=== PATIENT | female | born 1960 | race Caucasian/White ===

== ENCOUNTER 2018-02-19 14:13 | Emergency (ER) | payer SELFPAY ==
[2018-02-19] MEDS ORDERED: Ondansetron PF 4 MG/2 ML Vial ONE (15:15)
[2018-02-19] MEDS ORDERED: Morphine 2 MG/ML SYRINGE ONE ×2 (15:15→16:41)
[2018-02-19 15:19] LABS: #Basophils 0.1 thou/uL (0.0-0.2); #Eosinphils 0.3 thou/uL (0.0-0.7); #Lymphocytes 3.2 thou/uL (1.20-3.40); #Monocytes 0.6 thou/uL (0.11-0.59); #Neutrophils 4.4 thou/uL (1.40-6.50); %Basophils 1.1 % (0.0-1.0); %Eosinophils 3.5 % (0.0-10.0); %Lymphocytes 36.9 % (21.0-51.0); %Monocytes 7.4 % (0.0-10.0); %Neutrophils 51.1 % (42.0-75.0); Hemoglobin 9.9 g/dL (12.0-16.0); Mean Corpuscular HGB CONC 32.2 g/dL (32.0-36.0); Mean Corpuscular Hemoglobin 24.9 pg (27.0-31.0); Mean Corpuscular Volume 77.4 fL (78.0-98.0); Mean Platelet Volume 9.3 fL (7.4-10.4); Platelet Count 314 thou/uL (130-400); RBC Distribution Width 16.5 % (11.5-14.5); Red Blood Cell (RBC) Count 3.98 mill/uL (4.20-5.40); White Blood Cell (WBC) Count 8.6 thou/uL (4.8-10.8)
[2018-02-19 15:27] LABS: Bilirubin Negative (Negative); Blood, Urine Negative (Negative); Clarity CLEAR (Clear); Glucose, Urine (Dipstick) Negative (Negative); Leukocyte Small (Negative); Nitrite Negative (Negative); Protein, Urine (Dipstick) Negative (Neg-Trace); Specific Gravity, Urine 1.005 (1.002-1.036); Urobilinogen 0.2 mg/dL (0.2-1.0); pH, Urine 6.5 (5.0-9.0)
[2018-02-19 15:29] LABS: Bacteria/HPF None Seen HPF (None Seen); Hyaline Casts/LPF 0-3 HYALINE CAST LPF (0-3 Hyaline); Pathc Cast-AUWi Flag 0.14 (0-2.49); RBC/HPF 0-3 HPF (0-3); Squamous Epithelial 0-3 HPF (0-3); WBC/HPF 0-3 HPF (0-3)
[2018-02-19 16:18] LABS: ALT (SGPT) 22 U/L (8-55); AST (SGOT) 37 U/L (5-34); Albumin 3.6 g/dL (3.5-5.0); Alkaline Phosphatase 159 U/L (40-150); Anion Gap 13 mmol/L (10-20); BUN (Urea Nitrogen) 4 mg/dL (9.8-20.1); Bilirubin, Total 0.2 mg/dL (0.2-1.2); Calc. Creatinine Clearance 0 mL/min (70-130); Calcium 8.6 mg/dL (7.8-10.44); Carbon Dioxide 23 mmol/L (22-29); Chloride 106 mmol/L (98-107); Estimated GFR-MDRD 70; Globulin 3.1 g/dL (2.4-3.5); Glucose 87 mg/dL (70-105); Lipase 34 U/L (8-78); Potassium 4.2 mmol/L (3.5-5.1); Protein, Total 6.7 g/dL (6.0-8.3); Sodium 138 mmol/L (136-145)
[2018-02-19] MEDS ORDERED: Iopamidol 370 76% 100 ML VIAL ONE (16:25)
--- NOTE | 2018-02-19 16:25 | CT ---
CT OF THE ABDOMEN AND PELVIS WITH CONTRAST 02/19/18 COMPARISON: None. HISTORY: Exacerbation of chronic right sided abdominal pain for one week. Chronic diarrhea with nausea and vom iting. TECHNIQUE: Multiple contiguous axial images were obtained in a CT of the abdomen and pelvis with contrast. Coron al reformats were performed. FINDINGS: Diffuse fatty infiltration of the liver is seen. The patient is status post cholecystectomy and hyste rectomy. The kidneys, adrenal glands, spleen, and pancreas are unremarkable. Postsurgical changes are seen in the stomach. The large and small bowel are unremarkable. The appendi x is not definitely seen and may have been removed. No abdominal or pelvic lymphadenopathy are seen. Degenerative changes and postsurgical changes are seen in the spine. The visualized inferior thorax and abdominal wall soft tissues are unremarkable. IMPRESSION: 1. No evidence of acute intra-abdominal/pelvic abnormality. 2. Fatty liver. POS: [facility]
[2018-02-19] MEDS ORDERED: Ketorolac Tromethamine 30 MG/ML VIAL ONE (16:41)
== END 2018-02-19 17:18 | disposition home or self-care (01) ==
LOC: ERS 14:13
DX: R10.11 Right upper quadrant pain (principal); R10.31 Right lower quadrant pain; S50.12XA Contusion of left forearm, initial encounter; S50.11XA Contusion of right forearm, initial encounter; R11.2 Nausea with vomiting, unspecified; I10 Essential (primary) hypertension; K21.9 Gastro-esophageal reflux disease without esophagitis; D64.9 Anemia, unspecified; M06.9 Rheumatoid arthritis, unspecified; F41.9 Anxiety disorder, unspecified; F32.9 Major depressive disorder, single episode, unspecified; R23.8 Other skin changes; Z86.72 Personal history of thrombophlebitis; Z79.899 Other long term (current) drug therapy; X58.XXXA Exposure to other specified factors, initial encounter
CPT/HCPCS: 74177; 80053; 81003; 81015; 83690; 85025; 96361; 96374; 96375; 96376; J1885; J2270; J2405

== ENCOUNTER 2018-02-21 21:51 | Observation (INO) | payer SELFPAY ==
[2018-02-21 22:47] LABS: #Eosinphils 0.3 thou/uL (0.0-0.7); #Monocytes 0.8 thou/uL (0.11-0.59); #Neutrophils 5.2 thou/uL (1.40-6.50); %Basophils 0.5 % (0.0-1.0); %Eosinophils 3.3 % (0.0-10.0); %Lymphocytes 32.3 % (21.0-51.0); %Monocytes 8.9 % (0.0-10.0); Hemoglobin 9.9 g/dL (12.0-16.0); Mean Corpuscular HGB CONC 31.6 g/dL (32.0-36.0); Mean Corpuscular Hemoglobin 24.3 pg (27.0-31.0); Mean Corpuscular Volume 77.1 fL (78.0-98.0); Mean Platelet Volume 8.6 fL (7.4-10.4); Platelet Count 308 thou/uL (130-400); RBC Distribution Width 16.3 % (11.5-14.5); Red Blood Cell (RBC) Count 4.05 mill/uL (4.20-5.40); White Blood Cell (WBC) Count 9.4 thou/uL (4.8-10.8)
[2018-02-21] MEDS ORDERED: Morphine 4 MG/ML VIAL ONE ×2 (22:52→23:38)
[2018-02-21] MEDS ORDERED: Ondansetron PF 4 MG/2 ML Vial ONE (22:53)
[2018-02-21 23:09] LABS: ALT (SGPT) 25 U/L (8-55); AST (SGOT) 35 U/L (5-34); Albumin 3.5 g/dL (3.5-5.0); Alkaline Phosphatase 140 U/L (40-150); Anion Gap 11 mmol/L (10-20); BUN (Urea Nitrogen) 4 mg/dL (9.8-20.1); Bilirubin, Total Less than 0.2 mg/dL (0.2-1.2); Calc. Creatinine Clearance 0 mL/min (70-130); Calcium 8.8 mg/dL (7.8-10.44); Carbon Dioxide 24 mmol/L (22-29); Chloride 107 mmol/L (98-107); Estimated GFR-MDRD 66; Globulin 3.3 g/dL (2.4-3.5); Glucose 93 mg/dL (70-105); Lipase 38 U/L (8-78); Potassium 3.8 mmol/L (3.5-5.1); Protein, Total 6.8 g/dL (6.0-8.3); Sodium 138 mmol/L (136-145)
[2018-02-21 23:13] LABS: Bilirubin Negative (Negative); Blood, Urine Negative (Negative); Clarity CLEAR (Clear); Glucose, Urine (Dipstick) Negative (Negative); Leukocyte Moderate (Negative); Nitrite Negative (Negative); Protein, Urine (Dipstick) Negative (Neg-Trace); Specific Gravity, Urine 1.004 (1.002-1.036); Urobilinogen 0.2 mg/dL (0.2-1.0); pH, Urine 6.5 (5.0-9.0)
[2018-02-21 23:14] LABS: Bacteria/HPF None Seen HPF (None Seen); Hyaline Casts/LPF 0-3 HYALINE CAST LPF (0-3 Hyaline); Pathc Cast-AUWi Flag 0.29 (0-2.49); RBC/HPF 0-3 HPF (0-3); Squamous Epithelial 0-3 HPF (0-3)
[2018-02-22] MEDS ORDERED: Ondansetron ODT 4 MG TAB SL PRN (01:38)
[2018-02-22] MEDS ORDERED: Acetaminophen 325 MG TAB PO PRN (01:38)
[2018-02-22] MEDS ORDERED: Sodium Chloride 0.9% 1,000 ML IV SCH (01:38)
[2018-02-22] MEDS ORDERED: Ondansetron PF 4 MG/2 ML Vial IVP PRN (01:38)
[2018-02-22] MEDS ORDERED: hydrALAZINE 20 MG/ML VIAL SLOW IVP PRN (02:00)
[2018-02-22 02:29] VITALS: BMI 29.9
[2018-02-22] MEDS: Morphine 4 MG/ML VIAL IV PRN ×2 (02:49→09:34)
[2018-02-22] MEDS ORDERED: Ibuprofen 800 MG TAB PO PRN (04:17)
[2018-02-22] MEDS ORDERED: Bisacodyl 5 MG TAB PO PRN (04:17)
[2018-02-22] MEDS ORDERED: Senokot S 8.6-50 MG TAB PO PRN (04:17)
[2018-02-22] MEDS ORDERED: Zolpidem Tartrate 5 MG TAB PO PRN (04:17)
[2018-02-22] MEDS: Sodium Chloride 0.9% 1,000 ML IV SCH ×2 (04:48→11:57)
[2018-02-22] MEDS: methylPREDNISolone Sod Succ/PF 125 MG/2 ML VIAL IVP SCH (05:34)
[2018-02-22] MEDS: traMADol HCl 50 MG TAB PO PRN (06:42)
--- NOTE | 2018-02-22 07:53 | HP ---
CHIEF COMPLAINT: Abdominal pain. HISTORY OF PRESENT ILLNESS: HPI obtained from patient and medical records. This is a 57-year-old female with past medical history of rheumatoid arthritis, spinal stenosis, degenerative disk disease, autoimmune disease of IBS, IBD, GERD, anemia, vitamin B and vitamin D deficiency, and diverticulitis, presenting with diffuse abdominal pain, mostly located at the left lower quadrant. Per the patient, she has had history of abdominal pain for a long time, and the patient lived in [place], which is located around [place]. The patient states that, that is where her medical doctors are and she currently moved to [place]. The patient was recently in our hospital for similar abdominal pain, which the patient was seen, examined, and discharged from the ED. Now, the patient is coming back with similar abdominal pain, which is 7/10 and the patient stated that she is also having some diarrhea, loss of appetite, nausea, and vomiting. The patient states that she has history of irritable bowel syndrome, diarrhea type. In addition, the patient is also stating that she has history of inflammatory bowel disease with associated rash on her lower extremities, which has been there for approximately about a year. Upon further investigation and going through the patient's chart, we saw the patient back in April,. The patient had increased esophageal reflux; therefore, the patient saw a advertising sales representative, and an endoscopy was done. After endoscopy, it was found that the patient had 3 and 8 mm polyps in the fundus. Anastomosis in the fundus with gastric bypass type changes. Biopsy that was done on the polyps revealed reactive gastropathy without intestinal metaplasia was identified. Small bowel biopsy showed unremarkable duodenal mucosa with no evidence of celiac sprue. Cardiac workup that was done throughout those years was negative, and the patient had a colonoscopy done. Per records, the patient's colonoscopy revealed internal hemorrhoids. Also, the patient stated that she had some polyps as well. The patient also stated that she was found to have diverticulitis, which she was treated for. Upon further investigation, the patient's colonoscopy in the past showed that the patient was diagnosed with Crohn disease. REVIEW OF SYSTEMS: Positive for abdominal pain, decrease in appetite, diarrhea, nausea, vomiting, bilateral lower extremity rashes, otherwise as documented in the HPI, all other systems were reviewed and are negative. MEDICAL HISTORY: Significant for rheumatoid arthritis; spinal stenosis; degenerative disk disease; irritable bowel syndrome, diarrhea type; "inflammatory bowel disease;" Crohn disease; GERD; anemia; vitamin B and vitamin D deficiency; diverticulosis; diverticulitis; and history of DVTs. FAMILY HISTORY: The patient's mother had colon cancer. Mother also had lung disease. Father from brain tumor and mother from COPD. SURGICAL HISTORY: Cholecystectomy; appendectomy; tonsillectomy; hysterectomy; back surgery x2; right ulnar shortening, requiring surgery; abdominal adhesions removal; gastric bypass; and left rotator cuff repair. PSYCHIATRIC HISTORY: Depression and anxiety. SOCIAL HISTORY: The patient denies alcohol use, denies illicit drug use, and denies smoking history. ALLERGIES: ESTEFANI INHIBITORS, LATEX, PENICILLIN, AND SULFA. CURRENT MEDICATIONS: The patient takes, 1. Amitriptyline 50 mg. 2. Zoloft 100 mg. 3. Tramadol 50 mg. 4. Cyclobenzaprine 10 mg. 5. Zantac 300 mg. 6. Soma 250 mg. PHYSICAL EXAMINATION: VITAL SIGNS: The patient's blood pressure is 154/133, pulse of 93, respiratory rate of 18, temperature of 98.1, and oxygen saturation of 96% on room air. GENERAL: The patient is awake, alert, oriented x3, not in acute distress. The patient is very pleasant. HEENT: Normocephalic, atraumatic. Pupils are equally round and reactive to light. Extraocular movements are intact. No scleral icterus. No conjunctival pallor. Mucous membranes are moist. NECK: Trachea is midline. Full range of motion. Supple. No tenderness. RESPIRATORY: Lungs are clear to auscultation bilaterally. No wheezing, no rales, no rhonchi appreciated. CARDIAC: Positive S1, S2. Regular rate and rhythm. No murmurs, no gallops, no rubs appreciated. ABDOMEN: The patient has mild right lower quadrant and left lower quadrant tenderness with palpation. No peritoneal signs. No rigidity. No guarding. No rebound. Abdomen is nondistended. No palpable masses can be appreciated. Positive bowel sounds in all quadrants. EXTREMITIES: The patient has 5/5 upper extremity strength and 5/5 lower extremity strength. The patient has good pulses at the upper and lower extremities with no edema. The patient does have rashes located at the lower extremities bilaterally. NEUROLOGIC: Cranial nerves 2 through 12 are grossly intact. No neurologic deficits noted. SKIN: The patient does have a rash at the lower extremity bilaterally. PSYCH: Alert and oriented x3. Normal affect. LABORATORY DATA: WBC is 9.4, hemoglobin is 9.9, hematocrit is 31.2, MCV is 77.1, and RDW is 16.3. Creatinine is 0.89, sodium is 138, potassium is 3.8, chloride is 107, carbon dioxide of 24, anion gap of 11, alkaline phosphatase is 140. Lipase of 38. Urinalysis shows moderate leukocyte esterases. ASSESSMENT AND PLAN: This is a 57-year-old female with significant gastric history, presenting with; 1. Abdominal pain, likely due to Crohn flare. The patient has history of irritable bowel syndrome and irritable bowel disease. Per records, the patient was diagnosed with Crohn disease. However, the patient is not taking any medications for Crohn's. At this point, we will consult GI and we will follow up with GI regarding their recommendations. We will start the patient on 60 of Solu-Medrol daily and we will follow up with the patient closely. 2. Irritable bowel syndrome. At this point, the patient is having diarrhea. The patient states that nothing seems to help with her diarrhea and she has to just wait until everything resolves. We are going to continue the patient on IV fluids. We will monitor the patient closely. We will give pain medications for pain. 3. Rheumatoid arthritis. We will continue to monitor the patient and give the patient pain medications for pain. 4. History of gastroesophageal reflux disease. We are going to continue the patient on PPIs, and we will continue to monitor the patient. 5. History of anemia. At this point, the patient's hemoglobin is 9.9 and is stable. We will continue to monitor the patient closely. 6. Deep venous thrombosis/gastrointestinal prophylaxis. We will do Lovenox and Pepcid. Job ID: [id number]
[2018-02-22] MEDS: Amitriptyline HCl 25 MG TAB PO SCH ×2 (08:07→22:13)
[2018-02-22] MEDS: Famotidine 20 MG TAB PO SCH ×2 (08:08→22:11)
[2018-02-22] MEDS: Cyclobenzaprine 10 MG TAB PO SCH ×3 (08:08→22:11)
[2018-02-22] MEDS: Enoxaparin Sodium 40 MG/0.4 ML SYRINGE SC SCH (08:09)
[2018-02-22] MEDS ORDERED: methylPREDNISolone Sod Succ/PF 125 MG/2 ML VIAL IVP SCH (09:00)
[2018-02-22] MEDS: Famotidine/PF 20 mg/2ml Vial SLOW IVP SCH ×2 (09:35→22:11)
[2018-02-22] MEDS ORDERED: GoLYTELY 4,000 ml Bottle PO SCH (10:15)
--- NOTE | 2018-02-22 11:46 | PDOC.PN ---
- Subjective Encounter Start Date: 02/22/18 Encounter Start Time: 10:45 Subjective: f/u on admission for acute on chronic abd pain, in bed, no distress -: Reports hx of IBS-D with worsening symptoms -: Has been seen 3 times in ED for same, reports pain about same - Objective Resuscitation Status - Order Detail: 02/22/18 04:17 Resuscitation Status Routine Resuscitation Status: FULL: Full Resuscitation Vital Signs & Weight: Vital Signs (12 hours) Temp Pulse Resp BP BP Pulse Ox 02/22/18 07:11 98.1 F 90 18 166/92 H 96 02/22/18 02:00 148/94 H 02/22/18 01:30 98.4 F 86 18 197/122 H 96 Weight Weight 84.368 kg I&O: 02/21/18 02/22/18 02/23/18 06:59 06:59 06:59 Intake Total 422 800 Balance 422 800 Result Diagrams: 02/23/18 06:27 02/23/18 06:27 Phys Exam - Physical Examination Constitutional: NAD HEENT: PERRLA, moist MMs Neck: no nodes, no JVD Respiratory: no wheezing, clear to auscultation bilateral Cardiovascular: RRR, no significant murmur Gastrointestinal: soft mild tenderness to RLQ to palpation, abd soft, no signs of acute abd Musculoskeletal: no edema, pulses present Neurological: non-focal, normal sensation Lymphatic: no nodes Psychiatric: normal affect, A&O x 3 Skin: normal turgor Deviation from normal: diffuse papular rash to bilateral lower extremities Dx/Plan (1) Lower abdominal pain Code(s): R10.30 - LOWER ABDOMINAL PAIN, UNSPECIFIED Status: Acute (2) Diarrhea Code(s): R19.7 - DIARRHEA, UNSPECIFIED Status: Chronic (3) Rheumatoid arthritis Code(s): M06.9 - RHEUMATOID ARTHRITIS, UNSPECIFIED Status: Chronic - Plan cont current plan of care, DVT proph w/SCDs Dr. Gauthier will take to OR for GI scope after patient has finished prep -: Will continue to monitor vs, labs -: Will await GI recommendations after procedure * .
[2018-02-22] MEDS ORDERED: PROPOFOL 200 MG/20 ML VIAL ONE (16:02)
[2018-02-22] MEDS ORDERED: Promethazine HCl 25 MG/ML VIAL SLOW IVP PRN (20:50)
[2018-02-22] MEDS ORDERED: Promethazine HCl 25 MG/ML VIAL IM PRN (20:50)
[2018-02-22] MEDS ORDERED: Ondansetron HCl/PF 4 MG/2 ML Vial IVP PRN (20:50)
[2018-02-23] MEDS: Sodium Chloride 0.9% 1,000 ML IV SCH ×4 (00:30→23:53)
[2018-02-23] MEDS ORDERED: Morphine 2 MG/ML SYRINGE SLOW IVP SCH ×2 (00:45→05:00)
[2018-02-23] MEDS ORDERED: GoLYTELY 4,000 ml Bottle PO SCH ×2 (05:00→07:00)
[2018-02-23] MEDS: methylPREDNISolone Sod Succ/PF 125 MG/2 ML VIAL IVP SCH (05:51)
[2018-02-23 06:37] LABS: #Basophils 0.1 thou/uL (0.0-0.2); #Eosinphils 0.2 thou/uL (0.0-0.7); #Lymphocytes 3.2 thou/uL (1.20-3.40); #Monocytes 0.5 thou/uL (0.11-0.59); %Basophils 1.3 % (0.0-1.0); %Eosinophils 2.6 % (0.0-10.0); %Lymphocytes 45.8 % (21.0-51.0); %Monocytes 7.4 % (0.0-10.0); Hemoglobin 9.5 g/dL (12.0-16.0); Mean Corpuscular HGB CONC 31.1 g/dL (32.0-36.0); Mean Corpuscular Hemoglobin 24.4 pg (27.0-31.0); Mean Corpuscular Volume 78.7 fL (78.0-98.0); Mean Platelet Volume 8.7 fL (7.4-10.4); Platelet Count 258 thou/uL (130-400); RBC Distribution Width 16.4 % (11.5-14.5); Red Blood Cell (RBC) Count 3.87 mill/uL (4.20-5.40); White Blood Cell (WBC) Count 7.1 thou/uL (4.8-10.8)
[2018-02-23 06:57] LABS: Anion Gap 12 mmol/L (10-20); BUN (Urea Nitrogen) Less than 4 mg/dL (9.8-20.1); Calc. Creatinine Clearance 116 mL/min (70-130); Calcium 8.5 mg/dL (7.8-10.44); Carbon Dioxide 25 mmol/L (22-29); Chloride 107 mmol/L (98-107); Estimated GFR-MDRD 83; Glucose 158 mg/dL (70-105); Potassium 3.6 mmol/L (3.5-5.1); Sodium 140 mmol/L (136-145)
[2018-02-23] MEDS ORDERED: Ondansetron ODT 4 MG TAB PO PRN (07:26)
[2018-02-23] MEDS: Ondansetron PF 4 MG/2 ML Vial IVP PRN ×2 (08:54→12:14)
[2018-02-23] MEDS: traMADol HCl 50 MG TAB PO PRN ×2 (10:28→22:58)
[2018-02-23] MEDS: Famotidine 20 MG TAB PO SCH ×2 (10:29→20:54)
[2018-02-23] MEDS: Famotidine/PF 20 mg/2ml Vial SLOW IVP SCH ×2 (10:29→20:59)
[2018-02-23] MEDS: Enoxaparin Sodium 40 MG/0.4 ML SYRINGE SC SCH (10:30)
[2018-02-23] MEDS: Cyclobenzaprine 10 MG TAB PO SCH ×3 (10:30→20:55)
[2018-02-23] MEDS: Amitriptyline HCl 25 MG TAB PO SCH ×2 (10:31→20:55)
[2018-02-23] MEDS ORDERED: Ondansetron PF 4 MG/2 ML Vial SLOW IVP SCH (13:00)
--- NOTE | 2018-02-23 14:57 | PDOC.PN ---
- Subjective Encounter Start Date: 02/23/18 Encounter Start Time: 14:30 Subjective: follow up on admission for acute on chronic abd pain -: Reports pain is at a 5 which is around her baseline -: Colonscopy stopped last night due to inaffective prep - Objective Resuscitation Status - Order Detail: 02/22/18 04:17 Resuscitation Status Routine Resuscitation Status: FULL: Full Resuscitation Vital Signs & Weight: Vital Signs (12 hours) Temp Pulse Resp BP Pulse Ox 02/23/18 08:21 98.1 F 87 18 143/85 H 97 02/23/18 04:00 98.1 F 94 16 143/85 H 96 Weight Weight 84.368 kg I&O: 02/22/18 02/23/18 02/24/18 06:59 06:59 06:59 Intake Total 422 1100 Balance 422 1100 Result Diagrams: 02/23/18 06:27 02/23/18 06:27 Phys Exam - Physical Examination Constitutional: NAD HEENT: PERRLA, moist MMs Neck: no nodes, no JVD Respiratory: no wheezing, no rales Cardiovascular: RRR, no significant murmur Gastrointestinal: soft, non-tender Musculoskeletal: no edema, pulses present Neurological: non-focal, normal sensation Lymphatic: no nodes Psychiatric: normal affect, A&O x 3 Skin: normal turgor Deviation from normal: papular rash noted to bilateral lower legs, reports has been present for -: at least a year. Dx/Plan (1) Lower abdominal pain Code(s): R10.30 - LOWER ABDOMINAL PAIN, UNSPECIFIED Status: Acute (2) Diarrhea Code(s): R19.7 - DIARRHEA, UNSPECIFIED Status: Chronic (3) Rheumatoid arthritis Code(s): M06.9 - RHEUMATOID ARTHRITIS, UNSPECIFIED Status: Chronic (4) Rash Code(s): R21 - RASH AND OTHER NONSPECIFIC SKIN ERUPTION Status: Acute - Plan cont current plan of care, DVT proph w/SCDs -: Patient drank more prep today, will return to OR for colonscopy today -: Patient reports rash on her legs for 1 year, denies itchy, will check -: hepatitis panel -: Will continue to monitor VS and labs, await GI findings * .
--- NOTE | 2018-02-23 15:19 | PDOC.EVN ---
Event Note - Event Note Event Note: Ms. Berry was seen today in follow-up of Abdominal Pain with Ms. Fernandez TIFFANY. She is complaining of 5/10 abdominal pain which is a little improved from admission. She also notes a rash on both lower extremities, which has been present for over a year. She says it does not itch, and she has had it looked at before, but does not know what is causing it. Agree with the physical findings and plan of Ms. Fernandez. Await Colonoscopy Will check Hepatitis panel- as the leg lesions have some characteristics of a vasculitis- further work-up can be done outpatient ( Dermatology referral)
[2018-02-23 16:14] LABS: HBSAg Index 0.19 S/CO (0-0.99); Hep A IgM AB Non-Reactive (NonReactive); Hep A IgM S/CO 0.12 S/CO (0-0.79); Hep B Surf Ag Non-Reactive S/CO (NonReactive); Hep C IgG Ab Non-Reactive (NonReactive); Hep C Index 0.19 S/CO (0-0.79); Hepatitis B Core IgM Abs Non-Reactive (NonReactive)
[2018-02-23] MEDS ORDERED: PROPOFOL 200 MG/20 ML VIAL ONE (16:36)
[2018-02-23] MEDS ORDERED: Midazolam HCl 2 mg/2 ml Vial ONE (16:43)
[2018-02-23] MEDS ORDERED: Promethazine HCl 25 MG/ML VIAL SLOW IVP PRN (18:16)
[2018-02-23] MEDS ORDERED: Promethazine HCl 25 MG/ML VIAL IM PRN (18:16)
[2018-02-23] MEDS ORDERED: Ondansetron HCl/PF 4 MG/2 ML Vial IVP PRN (18:16)
[2018-02-23] MEDS: HYDROcodone/Acetaminophen 5/325 mg Tablet PO PRN (23:50)
[2018-02-24] MEDS ORDERED: Morphine 4 MG/ML VIAL SLOW IVP SCH (01:30)
--- NOTE | 2018-02-24 01:53 | OP ---
DATE OF PROCEDURE: 02/22/2018 PROCEDURE PERFORMED: Colonoscopy. PREOPERATIVE DIAGNOSES: Abdominal pain, severe over the right lower quadrant, history of colon polyp, and family history of colon cancer. POSTOPERATIVE DIAGNOSES: Poor exam because bowel prep and the exam was aborted after reaching about 70 cm from the anal margin. PROCEDURE NOTE: The patient was placed on her left lateral position and was given sedation by Anesthesia Department. A rectal exam was done before the scope was advanced into the rectum. The patient started passing a large amount of solid stool. No lesions were felt on rectal exam. A Pentax video colonoscope was introduced into the rectum and advanced to a distance that may be about 70 cm from the anal margin. The exam was very difficult due to the fact that she has a large amount of fecal material. All the water was irrigated, washed out, I could not even see the colon. The appears normal after washing out. However, the exam was suboptimal because of the above reason and the procedure terminated. PLAN: Bring the patient back after another prep for a repeat colonoscopy. Job ID: [id number]
--- NOTE | 2018-02-24 02:01 | OP ---
DATE OF PROCEDURE: 02/23/2018 PROCEDURE PERFORMED: Colonoscopy. PREOPERATIVE DIAGNOSIS: A 57-year-old female with abdominal pain, which has been persistent and chronic and a history of colon polyp and family history of colon cancer. The patient brought in for colonoscopy. POSTOPERATIVE DIAGNOSES: 1. No right colon pathology seen into the cecum, terminal ileum. 2. Mild sigmoid diverticular disease. 3. Hemorrhoids. 4. Floppy colon. PROCEDURE NOTE: The patient was placed on her left lateral position and was given sedation by Anesthesia Department. A rectal exam was done before the scope was advanced into the rectum. No lesions were felt on rectal exam. A Pentax video colonoscope was introduced into the rectum and advanced all the way to cecum. The patient has a very floppy colon. She also has a very flabby abdomen and abdominal compressed. We advanced the scope all the way into the cecum. The appendicular opening, ileocecal valve, cecum: No pathology seen. The scope was advanced to terminal ileum for about 10 cm. Ileal mucosa appeared normal. cecum to ascending colon, hepatic flexure, transverse colon: No pathology seen. The transverse colon, splenic flexure, descending colon: No pathology seen. The sigmoid colon showed mild diverticula. Retroflexion was done. The mucosa appeared normal toward the , there was no evidence of colitis. Job ID: [id number]
[2018-02-24] MEDS: HYDROcodone/Acetaminophen 5/325 mg Tablet PO PRN ×3 (05:02→12:54)
[2018-02-24] MEDS: methylPREDNISolone Sod Succ/PF 125 MG/2 ML VIAL IVP SCH (05:03)
--- NOTE | 2018-02-24 07:20 | CON ---
DATE OF CONSULTATION: 02/22/2018 REASON FOR CONSULTATION: Abdominal pain, nausea, and intermittent diarrhea. HISTORY OF PRESENT ILLNESS: Ms. Andres Berry is a very pleasant 57-year-old female with history of chronic GI symptoms over the years. The patient had lived in [place] before and had moved to [place], [place] approximately 18 months ago. The patient has had multiple colonoscopies done by Dr. Villareal in [place], and she has had multiple EGDs. She has had extensive workup done over the last several years. She has had multiple colonoscopies over the years and has had no pathology found out except for some small polyps removed. She also has some mild sigmoid diverticulitis. The patient came to the ER on the 19 February with abdominal pain and diarrhea. The patient wants some symptomatic treatment. She came back to the hospital with worsening abdominal pain, admitted to the hospital. The patient had abdominal CAT scan done, which revealed no pathology except for mild sigmoid diverticular disease and also fatty liver. There were no seen in the colon or small bowel. The abdominal pain is almost always over the right lower quadrant and at times over the left lower quadrant. She has had more frequency of stools etc. She also has had diarrhea off and on. The stools are watery, but she has no blood in the stool. I reviewed the medical record she has brought in with her. Going over the medical record, she has had multiple colonoscopies. She never had any colitis on colonoscopy. The terminal ileum also was normal. Last colonoscopy was done in 2014. She had a colonoscopy in 2009, 2011, and 2013. All the colonoscopies were basically negative for any inflammatory bowel disease. Although the patient has been told to have Crohn's disease from medical records, there is no indication that she has inflammatory bowel disease. The patient also had a small bowel series, multiple CAT scans, two capsule endoscopies, MRCP, abdominal CAT scan, abdominal sonography, all were negative except fatty liver and mild diverticulitis. The patient has history of IBS with diarrhea with flatus off and on. The patient came to the hospital yesterday with worsening abdominal pain and pain over the right lower quadrant, also a little bit over the left lower quadrant. She has no fever, no chills. She had abdominal CAT scan done in the ER. This CAT scan was basically negative for fatty liver and mild sigmoid diverticular disease. She has no relevant history. ALLERGIES: MULTIPLE; ESTEFANI INHIBITORS, LATEX, PENICILLIN, AND SULFA. SOCIAL HISTORY: The patient is . She denies any smoking or alcohol intake. No history of any drug use. PAST MEDICAL HISTORY: 1. Longstanding rheumatoid arthritis many years ago. 2. Spinal stenosis. 3. Degenerative joint disease. 4. IBS diarrhea. 5. Chronic acid reflux. 6. Anemia. 7. Vitamin B and vitamin D deficiency. 8. Diverticular disease. 9. Colon polyp. 10. Past history of DVTs. PAST SURGICAL HISTORY: 1. Cholecystectomy. 2. Appendectomy. 3. Tonsillectomy. 4. Hysterectomy. 5. Back surgery x2. 6. Right ulnar shortening requiring surgery. 7. Lysis of adhesions. 8. Gastric bypass. 9. Left rotator cuff repair. PAST PSYCHIATRIC HISTORY: Significant for anxiety. FAMILY HISTORY: Mother with colon cancer, also lung cancer. Father from brain tumor, and brother of COPD. MEDICATIONS: List reviewed, 1. Amitriptyline 50 mg once a day. 2. Zoloft 100 mg once a day. 3. Tramadol 50 mg. 4. Cyclobenzaprine 10 mg 4 times a day. 5. Zantac 300 mg once a day. 6. Soma 250 mg t.i.d. REVIEW OF SYSTEMS: CONSTITUTIONAL: No history of fever, no weight loss, except for weight loss after gastric bypass. She has good exercise tolerance. HEENT: Her vision is normal. No chronic headache. No nose bleed. No sore throat. NECK: No stiffness or pain. RESPIRATORY: No history of chronic cough, hemoptysis, dyspnea. CARDIAC: No chest pain. No palpitation. No dyspnea, palpation, or PND. GI: As in history of present illness. : No dysuria or hematuria. MUSCULOSKELETAL: No history of back pain or arthralgias. ENDOCRINE/HEMATOLOGIC: Unremarkable. PHYSICAL EXAMINATION: GENERAL: The patient appears very comfortable, states she is having lot of pain. VITAL SIGNS: She is afebrile. Pulse 90, blood pressure 166/92. Conjunctivae clear. NECK: Supple. No adenitis or thyromegaly. CARDIOVASCULAR: First and second heart sounds heard. LUNGS: Clear to auscultation. ABDOMEN: Soft, nondistended. Overall exam is very benign, although she complains of abdominal pain. She is minimally tender over the right lower quadrant with no rebound or guarding. She is mildly tender over the left lower quadrant. There is no organomegaly or mass. Bowel sounds are normal. EXTREMITIES: Reveal no edema. CENTRAL NERVOUS SYSTEM: Grossly within normal limits. LABORATORY DATA: Admitting labs: CBC, WBC 9400, polymorphs 55, lymphocyte 32, monocytes 8, hemoglobin 9.9, hematocrit 32.2, MCV 77.1, platelet count 308,000. Chemistry panel; chem-7 is normal. Creatinine 0.81, glucose of 93, calcium 8.8, bilirubin 0.2, AST 35, ALT 25, alkaline phosphatase 140. Lactate of 38. Abdominal CAT scan shows fatty liver and mild sigmoid diverticulosis. CLINICAL IMPRESSION: 1. A 57-year-old with chronic gastrointestinal symptoms over the years. The patient although she says she has Crohn's disease, on medical records, there is no mention of Crohn's disease anywhere in the medical chart. She has had extensive workup over the years. She has had numerous colonoscopies, numerous EGDs and also had several CAT scans, abdominal sonogram. She also has negative CT angiography and negative MRCP in the past. She has had two capsule endoscopies and both were negative. Based on the information, I believe, she has more of an irritable bowel syndrome with diarrhea. There is no evidence that she has an inflammatory bowel disease from her medical records. 2. Skin rash in both lower extremities over the past one year, possibly . 3. History of rheumatoid arthritis. 4. Depression and anxiety. 5. Chronic acid reflux. 6. Colon polyp. 7. Status post gastric bypass surgery. 8. Anemia. 9. Fatty liver. PLAN: I did talk to Ms. Berry and explained to her about the possibility that she mostly has IBS diarrhea. Numerous colonoscopies in the past including capsular endoscopy, small bowel series, MRCP, CAT scan everything is negative. RECOMMENDATIONS: 1. Clear liquid diet. 2. Plan for colonoscopy because of abdominal pain on the right lower quadrant. 3. Family history of colon cancer and personal history of colon polyp. 4. Trial of Bentyl 10 mg 4 times a day and may also try Librax. 5. She has had extensive workup done in the past. I believe she really does not need anything except for colonoscopy at the present time. These are all informed to the patient and the patient's . I will plan for a colonoscopy this afternoon. Job ID: [id number]
[2018-02-24] MEDS: Sodium Chloride 0.9% 1,000 ML IV SCH (08:34)
[2018-02-24] MEDS: Amitriptyline HCl 25 MG TAB PO SCH (08:35)
[2018-02-24] MEDS: Cyclobenzaprine 10 MG TAB PO SCH (08:35)
[2018-02-24] MEDS: Enoxaparin Sodium 40 MG/0.4 ML SYRINGE SC SCH (08:35)
[2018-02-24] MEDS: Famotidine 20 MG TAB PO SCH (08:36)
[2018-02-24] MEDS: Famotidine/PF 20 mg/2ml Vial SLOW IVP SCH (08:36)
[2018-02-24] MEDS: Ondansetron PF 4 MG/2 ML Vial IVP PRN (08:37)
[2018-02-24 08:45] VITALS: BP 168/102; TEMP 98.2
--- NOTE | 2018-02-25 13:09 | DIS ---
DATE OF ADMISSION: 02/22/2018 DATE OF DISCHARGE: 02/24/2018 CONDITION AT THE TIME OF DISCHARGE: Stable and improved. PRIMARY CARE PHYSICIAN: None. The patient will establish care. DISCHARGE DIAGNOSES: 1. Abdominal pain without any clear etiology. Irritable bowel syndrome versus psychosomatics. 2. History of rheumatoid arthritis per the patient. 3. Polypharmacy. 4. Narcotic-seeking behavior. HISTORY OF PRESENTING ILLNESS: Ms. Berry is a 57-year-old female, who recently moved to this area one year ago, who came to the emergency room for complaints of abdominal pain. The patient has extensive history of this ongoing for almost 19 years, but multiple evaluations with multiple EGDs and colonoscopies in various locations. She recently moved to this area. She reported that her pain was intractable. She had a CT scan done on the first of this month prior to this hospitalization that was 3 days ago, prior to presentation, which was unremarkable except for some fatty liver. She was admitted for further evaluation. She gave self history of Crohn's disease, which could not be collaborated anywhere from her record review, which she had with her. Please see admission history and physical for further details. Because of uncertain diagnosis, she was initially started on Solu-Medrol, thinking that this was a Crohn's flare-up. HOSPITAL COURSE: The patient was seen by GI and underwent a repeat colonoscopy. This is probably her fourth or fifth colonoscopy so far. Once again, this was unremarkable. The patient continued to have symptoms on and off, but has been cleared for discharge by Gastroenterology, as there is nothing more available to offer for her chronic IBS pain. She did ask me prior to discharge that I prescribed her some [place], which I gently declined, as her symptoms are not severe enough and narcotic would hard her symptoms more than help. This did make her somewhat upset, but I discussed this with Dr. Hood, our director marketing analytics and he agreed with that. She is being discharged on Bentyl and will follow up with Dr. Hood in the outpatient setting. She is also encouraged to establish care with a primary care physician. She was seen and examined prior to discharge. PHYSICAL EXAMINATION: VITAL SIGNS: On this morning; temperature 98.2, pulse 103, respirations 16, saturating 95% on room air, and blood pressure 168/102. GENERAL: No acute distress. Awake, alert, and oriented x3. ABDOMEN: She is clutching her abdomen on and off, but abdomen is soft and nontender to palpation. CHEST: Clear to auscultation bilaterally. DISCHARGE MEDICATION: Resume home medications as follows; 1. Zantac 150 mg daily. 2. Zoloft 100 mg daily. 3. Elavil 50 mg p.o. b.i.d. 4. Tramadol p.r.n. 5. Flexeril 10 mg p.o. daily. 6. Carisoprodol 350 mg p.o. t.i.d. 7. New medications, Bentyl 10 mg p.o. q.i.d. p.r.n. I have encouraged the patient to come off Soma and Flexeril, as these might be exacerbating her symptoms. She appears to be having polypharmacy, but at this time, she is reluctant to do so. She is encouraged to follow up with her primary care physician. TIME SPENT: Total time spent with discharge 32 minutes including [id number] interaction and discharge discussion with director marketing analytics. Job ID: [id number]
== END 2018-02-24 13:15 | disposition home or self-care (01) ==
LOC: ERS 21:51 → T4-B 02-22 01:10
PROVIDERS: ADMIT Internal Medicine; ATTEND Internal Medicine
PROC: 0DJD8ZZ Inspection of Lower Intestinal Tract, Via Natural or Artificial Opening Endoscopic (ICD-10-PCS; principal; 2018-02-24)
DX: K57.30 Diverticulosis of large intestine without perforation or abscess without bleeding (principal); K50.90 Crohn's disease, unspecified, without complications; K21.9 Gastro-esophageal reflux disease without esophagitis; K76.0 Fatty (change of) liver, not elsewhere classified; M19.90 Unspecified osteoarthritis, unspecified site; M06.9 Rheumatoid arthritis, unspecified; D64.9 Anemia, unspecified; Z86.010 Personal history of colon polyps; Z86.718 Personal history of other venous thrombosis and embolism; Z90.49 Acquired absence of other specified parts of digestive tract; Z80.0 Family history of malignant neoplasm of digestive organs; Z90.89 Acquired absence of other organs; Z90.710 Acquired absence of both cervix and uterus; Z88.8 Allergy status to other drugs, medicaments and biological substances; Z88.0 Allergy status to penicillin; Z88.2 Allergy status to sulfonamides; Z91.040 Latex allergy status; Z98.84 Bariatric surgery status; Z79.899 Other long term (current) drug therapy; Z98.890 Other specified postprocedural states
CPT/HCPCS: 36415; 80048; 80053; 80074; 81003; 81015; 83690; 85025; 87086; 90471; 90686; 96361; 96372; 96374; 96375; 96376; G0008; G0378; J0360; J1650; J2250; J2270; J2405; J2704; J2930; S0028